=== PATIENT | male | born 1970 | race Caucasian/White ===

== ENCOUNTER 2017-02-22 12:32 | Emergency (ER) | payer MEDICAID ==
[~2017-02-22] VITALS: Ht 177.8 cm; Wt 108.4 kg
[2017-02-22 13:07] VITALS: BP 150/109; Ht 177.8 cm; Wt 108.4 kg
== END 2017-02-22 13:51 | disposition home or self-care (01) ==
LOC: ED 12:32
DX: T23.311A Burn of third degree of right thumb (nail), initial encounter (principal); X08.8XXA Exposure to other specified smoke, fire and flames, initial encounter; V49.9XXA Car occupant (driver) (passenger) injured in unspecified traffic accident, initial encounter; Y93.89 Activity, other specified; Y92.89 Other specified places as the place of occurrence of the external cause; Y99.8 Other external cause status

== ENCOUNTER 2017-02-24 10:27 | Emergency (ER) | payer MEDICAID ==
[~2017-02-24] VITALS: Ht 177.8 cm; Wt 105.8 kg
[2017-02-24 10:54] VITALS: Ht 177.8 cm; Wt 105.8 kg
[2017-02-24 12:50] VITALS: BP 143/95
== END 2017-02-24 13:01 | disposition home or self-care (01) ==
LOC: ED 10:27
DX: T23.3 Burn of third degree of wrist and hand (principal); Z88.8 Allergy status to other drugs, medicaments and biological substances; X08.8XXD Exposure to other specified smoke, fire and flames, subsequent encounter